=== PATIENT | male | born 1965 | race African-American/Black ===

== ENCOUNTER 2019-07-08 13:39 | Emergency (ER) | payer OTHER ==
[2019-07-08] MEDS ORDERED: TETANUS & DIPHTHERIA TOX,ADULT 0.5 ML VIAL ONE (15:14)
--- NOTE | 2019-07-08 15:30 | RAD REPORT ---
EXAM DESCRIPTION: RAD - Foot Left 3 View - 07/08/2019 3:21 pm CLINICAL HISTORY: Left Foot pain FINDINGS: No fracture or dislocation is seen.
--- NOTE | 2019-07-08 15:51 | ER ---
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 Transition of care: patient was not received from another setting of care. Onset of symptoms was July 08, 2019. Risk Assessment: Do you want to hurt yourself or someone else? Patient reports no desire to harm self or others. Initial Sepsis Screen: Does the patient meet any 2 criteria? No. Patient's initial sepsis screen is negative. Does the patient have a suspected source of infection? No. Patient's initial sepsis screen is negative. Care prior to arrival: None. 13:58 Method Of Arrival: Ambulatory iw 13:58 Acuity: JUVE 3 iw Historical: - Allergies: 14:00 No Known Allergies; iw - Home Meds: 14:01 atorvastatin 40 mg oral tab 1 tab once daily [Active]; lisinopril-hydrochlorothiazide iw 20-25 mg oral tab 1 tab once daily [Active]; tamsulosin 0.4 mg oral cp24 1 cap once daily [Active]; aspirin 81 mg Oral TbEC 1 tab once daily [Active]; - PMHx: 14:01 Sleep Apnea; Hypertension; iw - PSHx: 14:01 None; iw - Immunization history:: Adult Immunizations Last tetanus immunization: unknown. - Social history:: Smoking status: Patient reports the use of cigarette tobacco products, smokes one-half pack cigarettes per day. - Ebola Screening: : Patient negative for fever greater than or equal to 101.5 degrees Fahrenheit, and additional compatible Ebola Virus Disease symptoms Patient denies exposure to infectious person Patient denies travel to an Ebola-affected area in the 21 days before illness onset No symptoms or risks identified at this time. Screenin:30 Abuse screen: Denies threats or abuse. Denies injuries from another. Nutritional aj1 screening: No deficits noted. Tuberculosis screening: No symptoms or risk factors identified. 16:43 Fall Risk None identified. aj1 Assessment: 14:30 General: Appears in no apparent distress. comfortable, Behavior is calm, cooperative, aj1 appropriate for age. Pain: Complains of pain in dorsum of left foot. 14:30 Neuro: Level of Consciousness is awake, alert, obeys commands, Oriented to person, aj1 place, time, situation. Cardiovascular: Patient's skin is warm and dry. Respiratory: Airway is patent Respiratory effort is even, unlabored, Respiratory pattern is regular, symmetrical. GI: No signs and/or symptoms were reported involving the gastrointestinal system. : No signs and/or symptoms were reported regarding the genitourinary system. EENT: No signs and/or symptoms were reported regarding the EENT system. Derm: Skin is pink, warm \T\ dry. normal. Musculoskeletal: Circulation, motion, and sensation intact. Swelling present in dorsum of left foot. 15:36 Reassessment: Patient appears in no apparent distress at this time. No changes from aj1 previously documented assessment. Patient and/or family updated on plan of care and expected duration. Pain level reassessed. Patient is alert, oriented x 3, equal unlabored respirations, skin warm/dry/pink. 16:42 Reassessment: Patient appears in no apparent distress at this time. No changes from aj1 previously documented assessment. Patient and/or family updated on plan of care and expected duration. Pain level reassessed. Patient is alert, oriented x 3, equal unlabored respirations, skin warm/dry/pink. Vital Signs: 14:01 BP 153 / 103; Pulse 58; Resp 16; Temp 97.9; Pulse Ox 96% on R/A; Weight 129.27 kg; iw Height 5 ft. 11 in. (180.34 cm); Pain 1/; 14:01 Body Mass Index 39.75 (129.27 kg, 180.34 cm) iw ED Course: 13:44 Patient arrived in ED. mr 14:00 Triage completed. iw 14:01 Arm band placed on. iw 14:05 Estrella Go, LYLY is Primary Nurse. aj1 14:13 Hong Anaya NP is PHCP. pm1 14:13 Yonatan Trevino MD is Attending Physician. pm1 14:30 Patient has correct armband on for positive identification. Bed in low position. Call aj1 light in reach. Side rails up X 1. 14:30 No provider procedures requiring assistance completed. aj1 15:23 Foot Left 3 View XRAY In Process Unspecified. EDMS 16:43 Patient did not have IV access during this emergency room visit. aj1 Administered Medications: 15:14 Drug: Tetanus-Diphtheria Toxoid Adult 0.5 ml {Health And Nutrition Specialist: [employer]. Exp: aj1 05/11/2021. Lot #: [id number]. } Route: IM; Site: left deltoid; 16:43 Follow up: Response: No adverse reaction aj1 Outcome: 15:50 Discharge ordered by MD. pm1 16:43 Discharged to home ambulatory. aj1 16:43 Condition: good 16:43 Discharge instructions given to patient, Instructed on discharge instructions, follow up and referral plans. medication usage, Demonstrated understanding of instructions, follow-up care, medications, Prescriptions given X 2. 16:43 Patient left the ED. aj1 Signatures: Dispatcher [employer] EDOH Estrella Go RN RN [facility] Briseyda King Irene, RN RN iw Marinas, Patrick, PONY ROLL FINISHER PONY ROLL FINISHER pm1
--- NOTE | 2019-07-08 15:51 | EDPHYS ---
Physician Documentation [facility] Name: Elmer Winn Age: 54 yrs Sex: Male : 1965 Arrival Date: 07/08/2019 Time: 13:44 Bed 30 Private MD: ED Physician Yonatan Trevino HPI: 07/08 14:45 This 54 yrs old Black Male presents to ER via Ambulatory with complaints of Left Foot pm1 Injury. 14:45 The patient presents with a puncture wound, salt water catfish spine. The complaints pm1 affect the dorsum of left foot. Context: The problem was sustained outdoors, resulted from fish fell on the patient's left foot. Patient had tennis shoes on. Onset: The symptoms/episode began/occurred just prior to arrival. Modifying factors: The symptoms are alleviated by pressure. Associated signs and symptoms: The patient has no apparent associated signs or symptoms, Pertinent negatives numbness, tingling. Treatment prior to arrival includes: applying pressure to the affected area. Severity of symptoms: in the emergency department the symptoms have improved. The patient has not experienced similar symptoms in the past. 14:45 Catfish and his spine came out whole. pm1 Historical: - Allergies: 14:00 No Known Allergies; iw - Home Meds: 14:01 atorvastatin 40 mg oral tab 1 tab once daily [Active]; lisinopril-hydrochlorothiazide iw 20-25 mg oral tab 1 tab once daily [Active]; tamsulosin 0.4 mg oral cp24 1 cap once daily [Active]; aspirin 81 mg Oral TbEC 1 tab once daily [Active]; - PMHx: 14:01 Sleep Apnea; Hypertension; iw - PSHx: 14:01 None; iw - Immunization history:: Adult Immunizations Last tetanus immunization: unknown. - Social history:: Smoking status: Patient reports the use of cigarette tobacco products, smokes one-half pack cigarettes per day. - Ebola Screening: : Patient negative for fever greater than or equal to 101.5 degrees Fahrenheit, and additional compatible Ebola Virus Disease symptoms Patient denies exposure to infectious person Patient denies travel to an Ebola-affected area in the 21 days before illness onset No symptoms or risks identified at this time. ROS: 14:45 Constitutional: Negative for fever, chills, and weight loss, Cardiovascular: Negative pm1 for chest pain, palpitations, and edema, Respiratory: Negative for shortness of breath, cough, wheezing, and pleuritic chest pain, Back: Negative for injury and pain. 14:45 Neuro: Negative for headache, weakness, numbness, tingling, and seizure. 14:45 MS/extremity: Positive for pain, puncture, of the dorsum of left foot, Negative for decreased range of motion, deformity. 14:45 Skin: Positive for puncture, of the dorsum of left foot. 14:45 All other systems are negative. pm1 Exam: 14:45 Constitutional: This is a well developed, well nourished patient who is awake, alert, pm1 and in no acute distress. Head/Face: Normocephalic, atraumatic. Neck: Trachea midline, no thyromegaly or masses palpated, and no cervical lymphadenopathy. Supple, full range of motion without nuchal rigidity, or vertebral point tenderness. No Meningismus. Chest/axilla: Normal chest wall appearance and motion. Nontender with no deformity. No lesions are appreciated. Cardiovascular: Regular rate and rhythm with a normal S1 and S2. No gallops, murmurs, or rubs. Normal PMI, no JVD. No pulse deficits. Respiratory: Lungs have equal breath sounds bilaterally, clear to auscultation and percussion. No rales, rhonchi or wheezes noted. No increased work of breathing, no retractions or nasal flaring. Back: No spinal tenderness. No costovertebral tenderness. Full range of motion. 14:45 MS/ Extremity: Pulses equal, no cyanosis. Neurovascular intact. Full, normal range of motion. 14:45 Skin: Appearance: normal except for affected area, abscess, not appreciated, cellulitis, is not appreciated, injury, puncture(s), of the dorsum of left foot. 14:45 Neuro: Orientation: is normal, Motor: is normal, moves all fours, Sensation: is normal, no obvious gross deficits. Vital Signs: 14:01 BP 153 / 103; Pulse 58; Resp 16; Temp 97.9; Pulse Ox 96% on R/A; Weight 129.27 kg; iw Height 5 ft. 11 in. (180.34 cm); Pain 1/10; 14:01 Body Mass Index 39.75 (129.27 kg, 180.34 cm) iw MDM: 14:25 Patient medically screened. pm1 14:51 Data reviewed: vital signs. Data interpreted: Pulse oximetry: on room air is 96 %. pm1 Interpretation: normal. 14:52 Special discussion: I discussed in detail with the patient the higher chance of wound pm1 infection based on his presenting history. 15:48 Counseling: I had a detailed discussion with the patient and/or guardian regarding: the pm1 historical points, exam findings, and any diagnostic results supporting the discharge/admit diagnosis, radiology results, the need for outpatient follow up, to return to the emergency department if symptoms worsen or persist or if there are any questions or concerns that arise at home. 07/08 14:44 Order name: Foot Left 3 View XRAY; Complete Time: 15:48 pm1 07/08 15:51 Order name: Wound Care; Complete Time: 16:42 pm1 Administered Medications: 15:14 Drug: Tetanus-Diphtheria Toxoid Adult 0.5 ml {Inking Machine Tender: [employer]. Exp: aj1 05/11/2021. Lot #: [id number]. } Route: IM; Site: left deltoid; 16:43 Follow up: Response: No adverse reaction aj1 Disposition: 18:20 Co-signature as Attending Physician, Yonatan Trevino MD. ma2 Disposition: 07/08/19 15:50 Discharged to Home. Impression: Puncture wound without foreign body, left foot. - Condition is Stable. - Discharge Instructions: Puncture Wound. - Prescriptions for Doxycycline Hyclate 100 mg Oral Tablet - take 1 tablet by ORAL route every 12 hours; 20 tablet. Tramadol 50 mg Oral Tablet - take 1 tablet by ORAL route every 8 hours as needed; 12 tablet. - Medication Reconciliation Form, Thank You Letter, Antibiotic Education, Prescription Opioid Use form. - Follow up: Emergency Department; When: As needed; Reason: Worsening of condition. Follow up: Private Physician; When: 2 - 3 days; Reason: Recheck today's complaints, Continuance of care, Re-evaluation by your physician. - Problem is new. - Symptoms have improved. Signatures: Dispatcher [employer] EDMS Estrella oG RN RN aj1 Becky Donovan RN RN Hong Anaya, PRISON CLASSIFICATION COUNSELOR PRISON CLASSIFICATION COUNSELOR pm1 Yonatan Trevino MD MD ma2 Corrections: (The following items were deleted from the chart) 16:43 15:50 07/08/2019 15:50 Discharged to Home. Impression: Puncture wound without foreign aj1 body, left foot. Condition is Stable. Discharge Instructions: Puncture Wound. Prescriptions for Doxycycline Hyclate 100 mg Oral Tablet - take 1 tablet by ORAL route every 12 hours; 20 tablet, Tramadol 50 mg Oral Tablet - take 1 tablet by ORAL route every 8 hours as needed; 12 tablet. and Forms are Medication Reconciliation Form, Thank You Letter, Antibiotic Education, Prescription Opioid Use. Follow up: Emergency Department; When: As needed; Reason: Worsening of condition. Follow up: Private Physician; When: 2 - 3 days; Reason: Recheck today's complaints, Continuance of care, Re-evaluation by your physician. Problem is new. Symptoms have improved. pm1
[2019-07-08 17:44] VITALS: BP 153/103; TEMP 97.9; O2SAT 96
== END 2019-07-08 16:43 | disposition home or self-care (01) ==
LOC: ER 13:39
DX: S91.332A Puncture wound without foreign body, left foot, initial encounter (principal); W56.52XA Struck by other fish, initial encounter; Y93.89 Activity, other specified; Y92.89 Other specified places as the place of occurrence of the external cause; Z23 Encounter for immunization; Z79.82 Long term (current) use of aspirin; I10 Essential (primary) hypertension; F17.210 Nicotine dependence, cigarettes, uncomplicated
CPT/HCPCS: 90471; 90714; 99283